=== PATIENT | male | born 1970 | race Two or more races ===

== ENCOUNTER 2016-10-26 19:49 | Emergency (ER) | payer SELFPAY ==
--- NOTE | 2016-10-26 20:46 | ER Document Report ---
ED Medical Screen (RME) - General Chief Complaint: Fall Injury Stated Complaint: FALL/SHOULDER INJURY Time Seen by Provider: 10/26/16 20:39 Mode of Arrival: Ambulatory Information source: Patient Notes: SPEAKS LIMITED DANISH TRAVEL OUTSIDE OF THE [place] IN LAST 30 DAYS: No - HPI Onset: This afternoon - 1700 HRS. Onset/Duration: Sudden Context: FELL OFF ROOF OF BUILDING Quality of pain: Sharp Severity: Moderate Associated Symptoms: Chest pain - LEFT, Hurts to breath. denies: Headache, Nausea, Vomiting Exacerbated by: Movement Relieved by: Remaining still Similar symptoms previously: No Recently seen / treated by doctor: No - Related Data Allergies/Adverse Reactions: No Known Allergies Allergy (Unverified 10/26/16 20:07) Past Medical History - General Information source: Patient - Social History Lives with: Family Family history: Reviewed & Not Pertinent - Medical History Medical History: Negative Renal/ Medical History: Denies: Hx Peritoneal Dialysis Review of Systems - Review of Systems Constitutional: No symptoms reported EENT: No symptoms reported Cardiovascular: Chest pain Respiratory: See HPI, Hurts to breathe Gastrointestinal: No symptoms reported Musculoskeletal: See HPI Skin: Other - ABRASIONS Neurological/Psychological: No symptoms reported. denies: Headaches Physical Exam - Vital signs Vitals: Temp Pulse Resp BP Pulse Ox 99.2 F 94 20 157/106 H 98 10/26/16 19:59 10/26/16 19:59 10/26/16 19:59 10/26/16 19:59 10/26/16 19:59 Interpretation: Hypertensive. No: Tachycardic, Hypoxic, Tachypneic - General General appearance: Appears well, Alert In distress: None - HEENT Head: Normocephalic Eyes: Normal Conjunctiva: Normal Neck: Normal, Supple - Respiratory Respiratory status: No respiratory distress Chest status: Tender - LEFT Breath sounds: Normal Chest palpation: No: Subcutaneous emphysema - Cardiovascular Rhythm: Regular Heart sounds: Normal auscultation Murmur: No - Abdominal Inspection: Normal Distension: No distension Bowel sounds: Normal Tenderness: Nontender - Back Back: Normal - Extremities General upper extremity: No: Normal inspection - L. SHOULDER TENDER General lower extremity: No: Normal inspection - GEL .L NOISARBA - Neurological Neuro grossly intact: Yes - Skin Skin Temperature: Warm Skin Moisture: Dry Skin Color: Normal Skin Turgor: Elastic Skin irregularity: other - MULTIPLE ABRASIONS. Course - Vital Signs Vital signs: Temp Pulse Resp BP Pulse Ox 99.2 F 94 20 157/106 H 98 10/26/16 19:59 10/26/16 19:59 10/26/16 19:59 10/26/16 19:59 10/26/16 19:59
--- NOTE | 2016-10-26 21:41 | RADIOLOGY REPORT (SQ) ---
EXAM DESCRIPTION: CT CHEST WITHOUT COMPLETED DATE/TIME: 10/26/2016 8:52 pm REASON FOR STUDY: FELL OFF ROOF, PAIN LEFT CHEST SHOULDER COMPARISON: None. TECHNIQUE: CT scan performed of the chest without intravenous contrast. Images reviewed with lung, soft tissue and bone windows. Reconstructed coronal and sagittal MPR images reviewed. All images st ored on PACS. All CT scanners at this facility use dose modulation, iterative reconstruction, and/or weight based d osing when appropriate to reduce radiation dose to as low as reasonably achievable (ALARA). [facility]: Dose Right [facility]: CareDose [facility]: Dose Right [facility]: Teradose 4D [facility]: Smart Zinch RADIATION DOSE: Up-to-date CT equipment and radiation dose reduction techniques were employed. CTDIv ol: 17.4 mGy. DLP: 665 mGy-cm. mGy. LIMITATIONS: No technical limitations. FINDINGS: LUNGS AND PLEURA: No masses, infiltrates, pneumothorax. No pleural effusions, calcificati ons. HILAR AND MEDIASTINAL STRUCTURES: No identified masses or abnormal nodes. No obvious aneurysm. HEART AND VASCULAR STRUCTURES: No aneurysm. No pericardial effusion. UPPER ABDOMEN: Hepatic steatosis. No acute findings. THYROID AND OTHER SOFT TISSUES: No masses. No adenopathy. BONES: No significant finding. HARDWARE: None in the chest. OTHER: No other significant findings. IMPRESSION: NO SIGNIFICANT FINDING ON NON-CONTRASTED CHEST CT. HEPATIC STEATOSIS. TECHNICAL DOCUMENTATION: JOB ID: [id number] Quality ID # [id number]: Final reports with documentation of one or more dose reduction techniques (e.g., Au tomated exposure control, adjustment of the mA and/or kV according to patient size, use of iterative reconstruction technique) 2010 [employer]- All Rights Reserved
--- NOTE | 2016-10-26 21:41 | RADIOLOGY REPORT (SQ) ---
EXAM DESCRIPTION: SHOULDER LEFT 2 OR MORE VIEWS COMPLETED DATE/TIME: 10/26/2016 8:54 pm REASON FOR STUDY: FELL OFF ROOF, PAIN LEFT CHEST SHOULDER COMPARISON: None. NUMBER OF VIEWS: Three views. TECHNIQUE: Internal rotation, external rotation, and Y view images acquired of the left shoulder. LIMITATIONS: None. FINDINGS: MINERALIZATION: Normal. BONES: No acute fracture or dislocation. No worrisome bone lesions. JOINTS: No dislocation. VISUALIZED LUNGS AND RIBS: No pneumothorax. No rib fracture. SOFT TISSUES: No radiopaque foreign body. OTHER: No other significant finding. IMPRESSION: NEGATIVE STUDY OF THE LEFT SHOULDER. NO RADIOGRAPHIC EVIDENCE OF ACUTE INJURY. TECHNICAL DOCUMENTATION: JOB ID: [id number] [employer]- All Rights Reserved
--- NOTE | 2016-10-26 22:19 | ER Document Report ---
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 Constant. Worse with deep breaths and movement. He has no abdominal pain nausea vomiting headache or neck pain. No neurologic symptoms. No loss of consciousness. Last tetanus is unknown. TRAVEL OUTSIDE OF THE [place] IN LAST 30 DAYS: No - Related Data Allergies/Adverse Reactions: No Known Allergies Allergy (Unverified 10/26/16 20:07) Past Medical History - General Information source: Patient - Social History Smoking Status: Unknown if Ever Smoked Lives with: Family Family History: None Patient has suicidal ideation: No Patient has homicidal ideation: No - Medical History Medical History: Negative Renal/ Medical History: Denies: Hx Peritoneal Dialysis Review of Systems - Review of Systems Notes: REVIEW OF SYSTEMS GEN: Denies fever, chills, weight loss ENT: Denies sore throat, nasal discharge, ear pain EYES: Denies blurry vision, eye pain, discharge CV: D pleuritic left chest wall pain RESP: Denies cough, shortness of breath, wheezing GI: Denies abdominal pain, nausea, vomiting, diarrhea MSK: Left shoulder pain SKIN: Denies rash, skin lesions LYMPH: Denies swollen glands/lymph nodes NEURO: Denies headache, focal weakness or numbness, dizziness PSYCH: Denies depression, suicidal or homicidal ideation PHYSICAL EXAMINATION General: No acute distress, well-nourished Head: Atraumatic, normocephalic ENT: Mouth normal, oropharynx moist, no exudates or tonsillar enlargement Eyes: Conjunctiva normal, pupils equal, lids normal Neck: No JVD, supple, no guarding CVS: Normal rate, regular rhythm, no murmurs Resp: No resp distress, equal and normal breath sounds bilaterally. Left axillary and mid axillary chest wall tenderness without crepitus or deformity. GI: Nondistended, soft, no tenderness to palpation, no rebound or guarding Ext: Left acromioclavicular mild deformity with tenderness. No crepitus. Decreased shoulder range of motion but no crepitus, and patient is able to oppose his left hand to his right shoulder. Right elbow edema and contusion distal to the medial epicondyle with a small abrasion. Equal pulses bilaterally. Back: No CVA or midline TTP Skin: No rash, warm Lymphatic: No lymphadeopathy noted Neuro: Awake, alert. Face symmetric. GCS 15. Physical Exam - Vital signs Vitals: Temp Pulse Resp BP Pulse Ox 99.2 F 94 20 157/106 H 98 10/26/16 19:59 10/26/16 19:59 10/26/16 19:59 10/26/16 19:59 10/26/16 19:59 Course - Re-evaluation Re-evalutation: 10/26/16 22:18 45-year-old male presents with right elbow contusion, left chest wall contusion and left shoulder pain after a fall. He has no head or neck trauma, is Nexus negative and does not require imaging. CT chest and shoulder x-ray left were ordered at triage and are both read as normal. I suspect he has an AC separation. Will treat with Percocet here, prescription for the same, sling, tetanus, and will add a right elbow x-ray although I believe this is a contusion not a fracture. He will be given a work note and will follow up with 1 of the community clinics as he is due to return to [facility] in 6 weeks. 10/26/16 22:36 Patient was given pain medicine. Elbow x-ray normal. Wound on the right elbow was cleansed. Left arm sling applied. Discharged home in stable condition. - Vital Signs Vital signs: Temp Pulse Resp BP Pulse Ox 99.2 F 94 20 157/106 H 98 10/26/16 19:59 10/26/16 19:59 10/26/16 19:59 10/26/16 19:59 10/26/16 19:59 - Diagnostic Test Radiology reviewed: Image reviewed, Reports reviewed Discharge - Discharge Clinical Impression: Chest wall contusion Qualifiers: Encounter type: initial encounter Laterality: left Qualified Code(s): S20.212A - Contusion of left front wall of thorax, initial encounter Sprain of left acromioclavicular joint, initial encounter Qualifiers: Encounter type: initial encounter Qualified Code(s): S43.52XA - Sprain of left acromioclavicular joint, initial encounter Condition: Good Disposition: HOME, SELF-CARE Instructions: Rib Contusion ([facility]), Shoulder Injury ([facility]) Additional Instructions: Please use the breathing machine every 30-45 minutes for the first 2 days. Please return to the ER for coughing uncontrolled pain or shortness of breath. Prescriptions: Oxycodone HCl/Acetaminophen [Percocet 5-325 mg Tablet] 1 - 2 tab PO Q4H PRN #25 tablet PRN Reason: Forms: Return to Work Referrals: [facility] [Provider Group] - Follow up as needed
--- NOTE | 2016-10-26 22:34 | RADIOLOGY REPORT (SQ) ---
EXAM DESCRIPTION: ELBOW RIGHT AP/LAT COMPLETED DATE/TIME: 10/26/2016 10:23 pm REASON FOR STUDY: medial elbow contusion r/o fx COMPARISON: None. NUMBER OF VIEWS: Two views. TECHNIQUE: AP and lateral radiographic images acquired of the right elbow. LIMITATIONS: None. FINDINGS: MINERALIZATION: Normal. BONES: No acute fracture or dislocation. No worrisome bone lesions. JOINT: No effusion. SOFT TISSUES: No soft tissue swelling. No foreign body. OTHER: No other significant finding. IMPRESSION: NEGATIVE STUDY OF THE RIGHT ELBOW. NO RADIOGRAPHIC EVIDENCE OF ACUTE INJURY. TECHNICAL DOCUMENTATION: JOB ID: [id number] [employer]- All Rights Reserved
[2016-10-26 22:57] VITALS: BP 139/96
== END 2016-10-26 22:45 | disposition home or self-care (01) ==
LOC: ER 19:49
DX: S43.52XA Sprain of left acromioclavicular joint, initial encounter (principal); S20.212A Contusion of left front wall of thorax, initial encounter; S50.01XA Contusion of right elbow, initial encounter; W13.2XXA Fall from, out of or through roof, initial encounter; Y92.008 Other place in unspecified non-institutional (private) residence as the place of occurrence of the external cause; R07.89 Other chest pain; M25.512 Pain in left shoulder; M25.521 Pain in right elbow
CPT/HCPCS: 71250; 99284